=== PATIENT | male | born 1975 | race Caucasian/White ===

== ENCOUNTER 2019-12-30 10:21 | Day surgery (SDC) | payer OTHER, MEDICAID, SELFPAY ==
[2019-11-30 12:41] VITALS: BMI 35.2
--- NOTE | 2019-12-01 08:30 | HP_ITS ---
Intake Vital Signs 11/30/19 BMI 35.2 11/30/19 Height 5 ft 8 in 11/30/19 Weight: 240 lb 11/30/19 BMI 36.5 11/30/19 BP 132/82 H 11/30/19 Blood Pressure Location Rt brachial 11/30/19 Position Sitting 11/30/19 Respiration 18 11/30/19 Pulse 87 11/30/19 Pulse Source Monitor 11/30/19 Temp 99.1 F 11/30/19 Temp Source Oral 11/30/19 Pulse Oximetry (%) 97 11/30/19 Oxygen Delivery Method room air Intake Visit Reasons: Umbilical hernia Chief Complaint: Umbilical pain Medical Administrative Assistant Required: No Is patient in pain?: Yes Allergies No Known Allergies Allergy (Verified 11/30/19 12:41) Medications naproxen sodium 220 mg capsule 220 mg PO BID PRN 11/29/19 [History Confirmed 11/30/19] sertraline 50 mg tablet 50 mg PO DAILY 11/29/19 [History Confirmed 11/30/19] [facility] Medical History (Updated 12/01/19 @ 08:[address] Arik Corona MD) Umbilical hernia (Acute) Back pain (Acute) Depression (Acute) Headache (Acute) History of gout (Acute) Knee pain (Acute) Neck pain (Acute) Hypertension (Chronic) Surgical History (Updated 11/30/19 @ 12:37 by Milvia Durand) History of tonsillectomy (Acute) History of vasectomy (Acute) history removal wisdom teeth (Acute) Family History (Updated 11/30/19 @ 12:38 by Milvia Durand) Mother Diabetes Father Diabetes Grandfather Diabetes Grandmother CVA (cerebral vascular accident) Social History (Updated 12/01/19 @ 08:[address] Arik Corona MD) Smoking Status: Current every day smoker Smokeless tobacco user: other alcohol intake: current alcohol intake frequency: a few times a week HPI HPI HPI: RUTH ANN COTO, is a 44 M who presents to the office today for HPI HPI Surgical H&P: Yes HPI: RUTH ANN COTO, is a 44 M who presents to the office today for Pain and bulging at his bellybutton. Patient reports that this is been going on for about 1 month. This happened while lifting something heavy at work. He reports no radiation of pain. He reports that the pain is at his umbilicus and it is constant but worse when he picks anything up. No nausea or vomiting. No fevers or chills or cough. ROS General General: Yes fatigue; no weight change, appetite, colon cancer, breast cancer or weakness HEENT HEENT: No difficulty swallowing, eye injury, eye surgery, swollen glands or hoarseness Endo Endocrine: No thyroid disease, diabetes mellitus, thyroid cancer, Hair loss, heat intolerance or cold intolerance Skin Skin: No rash or changing moles Breast Breast: No left breast lump, right breast lump, nipple discharge, breast pain, abnormal mammogram, abnormal US or breast enlargement Musc Musculoskeletal: Yes back problems and arthritis; no rheumatoid arthritis, gout or joint pain Cardio Cardiovascular: No murmur, pacemaker, heart disease, atrial fibrillation, high blood pressure, heart attack, heart stent, palpitations, shortness of breat with exertion or chest pain Psych Psychiatric: Yes depression; no anxiety or hearing voices Resp Respiratory: No shortness of breath, No sleep apnea, No cough, No COPD, No asthma, No emphysema, No wheezing Gastro Gastrointestinal: Yes abdominal pain, Yes nausea or vomiting, Yes diarrhea, No constipation, No blood in stool, Yes acid reflux, No hemorrhoids, No ulcers, No gallbladder problem, No black,tarry stools Sean Hematologic: No blood thinners, No blood disorders, No bleeding, No anemia, No blood clots Neuro Neurologic: No system reviewed and no additional complaints, except as docu, No as per HPI, No abnormal walking, No abnormal hearing, No abnormal movements, No abnormal speech, No behavioral changes, No burning sensations, No confusion, No seizure-like activity, No unsteadiness, No dizziness, No localized weakness, No frequent falls, No headache(s), No lack of coordination, No loss of vision, No memory loss, No numbness, No other visual disturbances, No radiating pain, No restless legs, No sensory deficit, No fainting, No tingling, No tremor(s), No weakness, No other Exam Const General: cooperative Orientation: alert, oriented x3 HENMT Head: normal to inspection Ears: hearing grossly normal bilaterally Eyes General: appearance normal, both eyes and all related structures Visual Zaragoza: normal visual zaragoza by confrontation Neck Neck: normal visual inspection Chest Chest palpation & inspection: normal inspection of the chest Breast Palpation: No nipple discharge Resp Effort & Inspection: normal respiratory effort Auscultation: clear to auscultation bilaterally Cardio Rate: regular rate Rhythm: regular rhythm Heart Sounds: no murmurs GI Inspection: non-distended Palpation: soft, hernia umbilical, nontender Musc Cervical Spine: normal cervical lordosis, cervical ROM normal Skin General: no rashes or lesions noted Neuro General: alert, oriented x3 Cranial Nerves: CN's II-XI intact bilaterally Cognition: normal cognition Extrem General: normal to inspection, full ROM Psych Appearance: grossly normal Affect: normal affect Assessment & Plan Problems 1. Umbilical hernia without obstruction and without gangrene K42.9 Plan The patient has a small umbilical hernia which is reducible. The opening appears to be less than 1 cm. I discussed Umbilical hernia repair without mesh if it is less than 1 cm. I did discuss mesh placement if the hernia ends up being larger than 1 cm. I discussed the surgery including the risks of bleeding, infection, injury to underlying bowel, hernia recurrence. The patient agrees to proceed. I did describe having to take at least 2 weeks off of work after surgery or at least on light duty. The patient understands and would like to schedule surgery. Arik Corona MD Pager: [facility] [address] [place] [address], [address] [place] [address] Office: Coding Level of Care Code Off vis,new,level 4 Diagnoses Umbilical hernia without obstruction and without gangrene K42.9 ??Obstruction and gangrene presence: without obstruction or gangrene Time Spent (min) 45 12/01/19 0830 <Electronically signed by Arik blackburn MD> Date _ Arik Corona MD I have re-examined the patient. There are no clinical changes since date of exam. We discussed the current risks associated with COVID-19. While it is understood that there is a community spread of COVID-19, the risk of flores COVID-[address] [facility] ([facility]) is very low; however, the risk cannot be completely mitigated because of the community spread of the disease. We discussed in detail the risk of exposure to and/or potential harm posed by the COVID-19 virus with having a surgery/procedure at this time versus the risk of delaying the surgery/procedure. It is not possible to know either the risk of delaying the surgery or procedure or chance of getting an infection with perfect accuracy, but a joint decision was made to proceed at this time with the scheduled surgery/procedure as indicated on the consent form. Patient was notified that we will need to comply with any screening or testing [facility] wishes to perform or that surgery may be delayed for any positive results.
--- NOTE | 2019-12-29 10:11 | EKG12_ITS ---
Test Reason : PRE OP Blood Pressure : / mmHG Vent. Rate : 071 BPM Atrial Rate : 071 BPM P-R Int : 138 ms QRS Dur : 090 ms QT Int : 370 ms P-R-T Axes : 047 072 063 degrees QTc Int : 402 ms Normal sinus rhythm Normal ECG Confirmed by GOLDIE MEDINA ([id number]), medical editor BOO BERRY ([id number]) on 12/30/2019 2:16:52 PM Referred By: Arik Corona Confirmed By:GOLDIE MEDINA
[2019-12-29 11:11] LABS: Hematocrit 44.2 % (40-54); Hemoglobin 14.6 g/dL (13.0-16.5); Mean Corpuscular Hgb 30.2 pg (27.0-32.0); Mean Corpuscular Volume 91.5 fL (80-94); Mean Platelet Vol. 9.5 fl (6.2-12.0); Platelet Count 192 K/mm3 (150-450); RBC Distribution Width CV 12.9 % (11.6-14.6); RBC Distribution Width SD 42.8 fl (35.1-43.9); Red Blood Count 4.83 M/mm3 (4.6-6.2); White Blood Count 10.9 K/mm3 (4.4-11.0)
[2019-12-30] VITALS (9 sets, daily range): BP systolic 102–152; BP diastolic 57–89; PULSE 55–66; RESP 16; TEMP 36.1–36.7; O2SAT 93–99; BMI 35.3
[2019-12-30] MEDS: Lactated Ringers 1,000 ML 100 ML IV (10:58)
[2019-12-30] MEDS: Cefazolin 2 GM in 0.9% Normal Saline 100 ML IV (12:20)
[2019-12-30] MEDS: Bupiv/Epi 0.5% Mpf 30 ML Vial (12:31)
--- NOTE | 2019-12-30 13:05 | PCM.OPRPT ---
Problem List (1) Umbilical hernia Status: Acute Qualifiers: Obstruction and gangrene presence: without obstruction or gangrene Report of Operation Date of Procedure: 12/30/19 Pre-Operative Diagnosis: Umbilical hernia Post-Operative Diagnosis: Same Surgery/Procedure Performed:: Umbilical hernia repair Specimen's removed: None Description of Procedure: Patient was brought to the operating room and MAC anesthesia was induced. The abdomen was prepped and draped in usual sterile fashion. Curvilinear incision was marked in the superior umbilical space and anesthetized with local anesthetic. Incision was then made and deepened to the hernia. The hernia was dissected free bluntly and the fascia was cleaned with electrocautery. The hernia was reduced and 3 interrupted 2-0 PDS sutures were placed in a transverse fashion in the umbilical fascia. The subcutaneous tissue was irrigated and suctioned dry and the incision was closed with a running 4-0 Monocryl suture. Steri-Strips and bandages were then applied. Patient tolerated the procedure well was brought back in stable condition. - Admit VTE Documentation VTE Mechan Device Prophylaxis: SCD's
--- NOTE | 2019-12-30 13:08 | PCM.DC.HER ---
Discharge Diet: Light diet - advance as tolerated Discharge Activity: Return to Normal Activity, May Not Drive - for 2-3 days or while taking narcotic pain meds., May Shower - with the bandage in place 1-2 days after surgery. Lifting Restrictions: 20 pounds for 4 weeks. Additional Activity Instructions:: Climbing stairs is fine, walking is encouraged. Sitting in bed may be uncomfortable. Sitting up using your lateral muscles (sitting up sideways) is usually more comfortable. Do not drive, work heavy equipment of sign legal documents for 24 hours. Pain medications may cause nausea, you should typically eat light foods as you take your pain medications. Pain medications may also cause constipation. If you have difficulty with this, discuss with your doctor. Call your doctor if your incision/area has: Continuous Slow Oozing, Sudden Increased Bleeding, Increased Pain/ Swelling, Increased Redness, Foul Smelling Discharge Call your doctor if you observe: Fever of 101 or Higher Suture Line Care: Avoid Pulling/Pushing, Avoid Pinching/Bending Change Dressing in (Days):: 3 - Leave steri-strips for 1 week. May protect with a guaze bandaid. Cleanse incision/area with: Keep Dressing Clean & Dry Allergies/Adverse Reactions: Allergies No Known Allergies Allergy (Verified 12/30/19 10:29) Medications to take at Discharge naproxen sodium 220 mg capsule 220 mg PO BID PRN 11/29/19 sertraline 50 mg tablet 75 mg PO QHS 11/29/19 Oxycodone HCl/Acetaminophen [Percocet 5-325 mg Tablet] 1 - 2 tab PO Q6H PRN 4 Days #20 tablet 12/30/19 The following prescriptions were given: Oxycodone HCl/Acetaminophen [Percocet 5-325 mg Tablet] 1 - 2 tab PO Q6H PRN 4 Days #20 tablet PRN Reason: Pain Score 4-10/10 Transmission Status: Sent to [facility] Primary Care Physician: Alejandra Mistry NP-C [Primary Care Provider] - Test Results: Test results from this visit will be discussed in further detail at your follow-up appointment, if applicable. Please Follow Up With: Arik Corona MD When: Please call to schedule 2 week follow up appointment. [phone]
== END 2019-12-30 14:18 | disposition home or self-care (01) ==
LOC: SDC 10:23 → AC 10:24
PROVIDERS: Anesthesiology; PCP Nurse Practitioner Family; Referring Provider Surgery; Visit Provider Surgery
PROC: (CPT 49585; principal; 2019-12-30 11:45)
DX: K42.9 Umbilical hernia without obstruction or gangrene (principal); F17.200 Nicotine dependence, unspecified, uncomplicated; F32.9 Major depressive disorder, single episode, unspecified; K21.9 Gastro-esophageal reflux disease without esophagitis; Z79.899 Other long term (current) drug therapy; Z11.59 Encounter for screening for other viral diseases
CPT/HCPCS: 49585; 36415; 85027; 87635; 93005; G2023; J7120; J2405; U0004

== ENCOUNTER 2020-08-03 08:38 | Day surgery (SDC) | payer OTHER, MEDICAID, SELFPAY ==
[2020-07-13 08:17] VITALS: BMI 36.8
--- NOTE | 2020-07-17 06:03 | HP_ITS ---
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 Is patient in pain?: Yes (umbilicus) Allergies No Known Allergies Allergy (Verified 07/13/20 07:56) Medications sertraline 50 mg tablet 75 mg PO QHS 11/29/19 [History Confirmed 07/13/20] [facility] Medical History Umbilical hernia (Acute) Back pain (Acute) Depression (Acute) Headache (Acute) History of gout (Acute) Knee pain (Acute) Neck pain (Acute) Hypertension (Chronic) Surgical History History of tonsillectomy (Acute) History of umbilical hernia repair (Acute ~12/2019) History of vasectomy (Acute) history removal wisdom teeth (Acute) Family History Mother Diabetes Father Diabetes Grandfather Diabetes Grandmother CVA (cerebral vascular accident) Social History (Updated 07/13/20 @ 08:[address] Arik Corona MD) Smoking Status: Current every day smoker Smokeless tobacco user: other alcohol intake: current alcohol intake frequency: a few times a week HPI HPI HPI: RUTH ANN COTO, is a 45 M who presents to the office today for HPI HPI Surgical H&P: Yes HPI: RUTH ANN COTO, is a 45 M who presents to the office today for recurrence of pain and bulging in his umbilical hernia site. The patient reports that he began feeling bulging approximately 1 month ago. He had umbilical hernia repair without mesh in December of this year. ROS General General: Yes fatigue; no weight change, appetite, colon cancer, breast cancer or weakness HEENT HEENT: No difficulty swallowing, eye injury, eye surgery, swollen glands or hoarseness Endo Endocrine: No thyroid disease, diabetes mellitus, thyroid cancer, Hair loss, heat intolerance or cold intolerance Skin Skin: No rash or changing moles Breast Breast: No left breast lump, right breast lump, nipple discharge, breast pain, abnormal mammogram, abnormal US or breast enlargement Musc Musculoskeletal: Yes back problems and arthritis; no rheumatoid arthritis, gout or joint pain Cardio Cardiovascular: No murmur, pacemaker, heart disease, atrial fibrillation, high blood pressure, heart attack, heart stent, palpitations, shortness of breat with exertion or chest pain Psych Psychiatric: Yes depression; no anxiety or hearing voices Resp Respiratory: No shortness of breath, No sleep apnea, No cough, No COPD, No asthma, No emphysema, No wheezing Gastro Gastrointestinal: Yes abdominal pain, Yes nausea or vomiting, Yes diarrhea, No constipation, No blood in stool, Yes acid reflux, No hemorrhoids, No ulcers, No gallbladder problem, No black,tarry stools Sean Hematologic: No blood thinners, No blood disorders, No bleeding, No anemia, No blood clots Neuro Neurologic: No system reviewed and no additional complaints, except as docu, No as per HPI, No abnormal walking, No abnormal hearing, No abnormal movements, No abnormal speech, No behavioral changes, No burning sensations, No confusion, No seizure-like activity, No unsteadiness, No dizziness, No localized weakness, No frequent falls, No headache(s), No lack of coordination, No loss of vision, No memory loss, No numbness, No other visual disturbances, No radiating pain, No restless legs, No sensory deficit, No fainting, No tingling, No tremor(s), No weakness, No other Exam Const General: cooperative Orientation: alert, oriented x3 Chest Breast Palpation: No nipple discharge Resp Effort & Inspection: normal respiratory effort Auscultation: clear to auscultation bilaterally Cardio Rate: regular rate Rhythm: regular rhythm Heart Sounds: no murmurs GI Inspection: non-distended Palpation: soft, hernia umbilical, nontender Assessment & Plan Problems 1. Recurrent umbilical hernia K42.9 Plan The patient appears to have had a recurrence of his umbilical hernia. I recommended umbilical hernia repair with mesh. I discussed this with him in detail. I discussed the procedure as well as the risks of mesh placement. I discussed the risks of the procedure including allergy to bleeding, infection, injury to underlying organ. Patient understands and is well to proceed with recurrent umbilical hernia repair with mesh. We discussed the current risks associated with COVID-19. While it is understood that there is a community spread of COVID-19, the risk of flores COVID-19 while at [facility] ([facility]) is very low; however, the risk cannot be completely mitigated because of the community spread of the disease. We discussed in detail the risk of exposure to and/or potential harm posed by the COVID-19 virus with having a surgery/procedure at this time versus the risk of delaying the surgery/procedure. It is not possible to know either the risk of delaying the surgery or procedure or chance of getting an infection with perfect accuracy, but a joint decision was made to proceed at this time with the scheduled surgery/procedure as indicated on the consent form. Patient was notified that we will need to comply with any screening or testing [facility] wishes to perform or that surgery may be delayed for any positive results. Arik Corona MD Pager: [facility] [address] [place] [address], [address] [place] [address] Office: Coding Level of Care Code Off vis,est,level 3 Diagnoses Recurrent umbilical hernia K42.9 I have re-examined the patient. There are no clinical changes since date of exam.
[2020-08-03] VITALS (14 sets, daily range): BP systolic 118–144; BP diastolic 78–92; PULSE 70–98; RESP 16; TEMP 36.2–36.8; O2SAT 87–99; BMI 37.3
[2020-08-03] MEDS: Lactated Ringers 1,000 ML 100 ML IV (09:10)
--- NOTE | 2020-08-03 10:00 | HERN_PTH ---
PATIENT: RUTH ANN COTO LOC: [facility] [place] U#:[id number] AGE/SX: 45/M ROOM: RE08/03/[address]: Dr. Arik Corona MD : 1975 BED: DIS: 08/03/2020 SPEC #: [id number] RECD: 08/03/20 11:00 STATUS: LIV MONIK #: [id number] JANES: 08/03/20 10:[address]: Airk Corona DEPT: SURGICAL PATHOLOGY RECD BY: Deb Otero ENTERED: 08/03/20 11:24 SP TYPE: Hernia OTHR DR: HODAN Chavez Tissues: HERNIA Procedures: Surgery Specimen Level II HEADER OPERATION: Umbilical hernia repair with mesh PRE-OP DIAGNOSIS: Recurrent umbilical hernia TISSUE SUBMITTED: Hernia sac MICROSCOPIC DIAGNOSIS Hernia sac: Pieces of fibroadipose tissue, consistent with hernia sac with focal chronic inflammation, histiocytic reaction and foreign body giant cell reaction. SJ:florentino 08/07/2020 MICROSCOPIC DESCRIPTION Slides are reviewed. GROSS DESCRIPTION Received in fixative is one container labeled with the patient's name and designated hernia sac. The specimen consists of two irregular fragments of maldonado-yellow fibrofatty tissue measuring 5.5 x 4 x 2 cm. Serial sections reveal homogenous yellow cut surfaces. Palletiser Operator sections are submitted in one cassette. / AM:florentino 08/03/20 TC:5 CPT: 05638
[2020-08-03] MEDS: Cefazolin 2 GM in 0.9% Normal Saline 100 ML IV (10:02)
[2020-08-03] MEDS: Bupiv/Epi 0.5% Mpf 30 ML Vial (10:47)
--- NOTE | 2020-08-03 11:05 | PCM.DC.HER ---
Discharge Diet: Light diet - advance as tolerated Discharge Activity: Return to Normal Activity, May Not Drive - for 2-3 days or while taking narcotic pain meds., May Shower - with the bandage in place 1-2 days after surgery. Lifting Restrictions: 20 pounds for 6 weeks. Additional Activity Instructions:: Climbing stairs is fine, walking is encouraged. Sitting in bed may be uncomfortable. Sitting up using your lateral muscles (sitting up sideways) is usually more comfortable. Do not drive, work heavy equipment of sign legal documents for 24 hours. Pain medications may cause nausea, you should typically eat light foods as you take your pain medications. Pain medications may also cause constipation. If you have difficulty with this, discuss with your doctor. Call your doctor if your incision/area has: Continuous Slow Oozing, Sudden Increased Bleeding, Increased Pain/ Swelling, Increased Redness, Foul Smelling Discharge Call your doctor if you observe: Fever of 101 or Higher Suture Line Care: Avoid Pulling/Pushing, Avoid Pinching/Bending Change Dressing in (Days):: 3 Cleanse incision/area with: Keep Dressing Clean & Dry Allergies/Adverse Reactions: Allergies No Known Allergies Allergy (Verified 07/13/20 16:11) Medications to take at Discharge sertraline 50 mg tablet 75 mg PO QHS 11/29/19 Oxycodone HCl/Acetaminophen [Percocet 5-325 mg Tablet] 1 - 2 tab PO Q6H PRN PRN 5 Days #20 tablet 08/03/20 The following prescriptions were given: Oxycodone HCl/Acetaminophen [Percocet 5-325 mg Tablet] 1 - 2 tab PO Q6H PRN PRN 5 Days #20 tablet PRN Reason: Pain Score 4-10/10 Transmission Status: Sent to [facility] Primary Care Physician: Alejandra Mistry MEDICAL STAFF SPECIALIST, MEDICAL STAFF SPECIALIST-C [Primary Care Provider] - Test Results: Test results from this visit will be discussed in further detail at your follow-up appointment, if applicable. Please Follow Up With: Arik Corona MD When: Call to make 2 week follow up appt [phone]
[2020-08-03] MEDS: oxyCODONE 5 MG Tablet PO (11:52)
[2020-08-03] MEDS: Acetaminophen 325 MG Tablet PO (11:52)
[2020-08-03] MEDS: Ipratropium/Albuterol Sulfate 3 ML AMPUL.NEB INHALATION (12:11)
--- NOTE | 2020-08-03 14:25 | PCM.OPRPT ---
Problem List (1) Umbilical hernia Status: Acute Qualifiers: Obstruction and gangrene presence: without obstruction or gangrene Report of Operation Date of Procedure: 08/03/20 Pre-Operative Diagnosis: Umbilical hernia Post-Operative Diagnosis: Same Surgery/Procedure Performed:: Umbilical hernia repair with mesh Description of Procedure: Patient was brought back the operating room and general anesthesia was induced. The abdomen was prepped and draped in usual sterile fashion. The prior incision was injected with local anesthetic and incision was made. It was deepened to the fascia and the fascia was elevated and dissected free. The hernia sac was inspected and removed and the peritoneum was closed with a running 3-0 Vicryl suture. Next the preperitoneal space was developed using electrocautery and blunt dissection until there is no space for the mesh. A small Ventralex mesh was placed in the preperitoneal region and sutured to the anterior abdominal wall using interrupted 0 PDS sutures. The area was irrigated and the fascia was closed with a transverse 0 PDS sutures. The subcutaneous tissue was irrigated and suctioned dry. The umbilical stalk was sutured to the fascia using 3-0 Vicryl. The skin was then closed with running 4-0 Monocryl suture as well as glue. Patient was awoken and taken to PACU in stable condition and tolerated the procedure well. Grafts/Implants Used: Small Ventralex mesh - Admit VTE Documentation VTE Mechan Device Prophylaxis: SCD's
== END 2020-08-03 13:01 | disposition home or self-care (01) ==
LOC: SDC 08:38 → AC 08:39
PROVIDERS: PCP Nurse Practitioner Family; Referring Provider Surgery; Visit Provider Surgery
PROC: (CPT 49585; principal; 2020-08-03 09:45)
DX: K42.9 Umbilical hernia without obstruction or gangrene (principal); F17.200 Nicotine dependence, unspecified, uncomplicated; K21.9 Gastro-esophageal reflux disease without esophagitis; F32.9 Major depressive disorder, single episode, unspecified; Z20.828 Contact with and (suspected) exposure to other viral communicable diseases; Z79.899 Other long term (current) drug therapy
CPT/HCPCS: 49585; 87426; 88302; 94640; C9803; J7120; C1781; J2405